=== PATIENT | female | born 1930 | race Caucasian/White ===

== ENCOUNTER 2016-07-19 07:09 | Day surgery (SDC) | payer MEDICARE ==
[~2016-07-19] VITALS: Ht 149.9 cm; Wt 51.8 kg
[2016-07-19] VITALS (8 sets, daily range): BP systolic 102–153; BP diastolic 42–72; PULSE 70–90; RESP 18–20; TEMP 95.9–97.4; O2SAT 94–98
[2016-07-19] MEDS ORDERED: ASPI1TAB69 PO (07:50)
[2016-07-19] MEDS ORDERED: AMLO5TAB2 PO (07:50)
[2016-07-19] MEDS ORDERED: PRESCAP5 PO (07:50)
[2016-07-19] MEDS ORDERED: B COTAB8 PO (07:50)
[2016-07-19] MEDS ORDERED: COQ1400C PO (07:50)
[2016-07-19] MEDS ORDERED: PANT40TA3 PO (07:50)
[2016-07-19] MEDS ORDERED: PRAV80TA2 PO (07:50)
[2016-07-19] MEDS ORDERED: SODIUM BICARBONATE 8.4% INJ 50 ML ONE (08:02)
[2016-07-19] MEDS ORDERED: LIDOCAINE 1%/EPINEPHrine 1:100,000 SOLN 20 ML VIAL ONE (08:02)
[2016-07-19 08:09] LABS: AUTOMATED NEUTROPHIL # 5.4 TH/MM3 (1.8-7.7); BASOPHIL # 0.1 TH/MM3 (0-0.2); BASOPHIL % 0.6 % (0.0-2.0); EOSINOPHIL # 0.1 TH/MM3 (0-0.4); EOSINOPHIL % 1.1 % (0.0-4.0); HEMATOCRIT 41.8 % (35.0-46.0); LYMPH % 23.5 % (9.0-44.0); MEAN CELL VOLUME 93.6 FL (80.0-100.0); MEAN CORPUSCULAR HEMOGLOBIN 33.7 PG (27.0-34.0); NEUT % 63.8 % (16.0-70.0); PLATELET COUNT 173 TH/MM3 (150-450); RED BLOOD COUNT 4.46 MIL/MM3 (4.00-5.30); RED CELL DISTRIBUTION WIDTH 13.4 % (11.6-17.2); WHITE BLOOD COUNT 8.5 TH/MM3 (4.0-11.0)
[2016-07-19 08:11] LABS: HEMO FLAGS AUTO DIFF
[2016-07-19 08:37] LABS: SCAN/DIFF AUTO DIFF CONFIRMED
[2016-07-19] MEDS ORDERED: MIDAZOLAM HCL 5 MG/5 ML VIAL ONE (08:45)
[2016-07-19] MEDS ORDERED: fentaNYL CITRATE 250 MCG/5 ML AMP ONE (08:45)
--- NOTE | 2016-07-19 11:23 | RADRPT ---
EXAM DATE/TIME: 07/19/2016 10:54 [facility] COMPARISON: No previous studies available for comparison. INDICATIONS : Status post left lung biopsy. MEDICAL HISTORY : None. SURGICAL HISTORY : Right lobectomy. ENCOUNTER: Initial ACUITY: 1 day PAIN SCORE: 0/10 LOCATION: Left chest FINDINGS: Single frontal expiratory view of the chest obtained portably demonstrates mild elevation of the righ t hemidiaphragm. There is opacity at the left lower lung consistent with the patient's known left mulu g mass. There is atherosclerotic calcification of the aorta noted. There is no evidence of pneumothor ax. Degenerative changes of the spine. CONCLUSION: No evidence of pneumothorax. Vinnie Herring MD on July 19, 2016 at 11:21 Board Certified Radiologist. This report was verified electronically.
--- NOTE | 2016-07-19 11:32 | RADRPT ---
EXAM DATE/TIME: 07/19/2016 08:55 [facility] COMPARISON: CHEST EXPIRATION ONLY, July 19, 2016, 10:54. Correlated with outside PET/CT exam. INDICATIONS : Left lung mass. SEDATION TIME: 30 minutes BIOPSY SITE: Left lung MEDICATION(S): 1.) 2.5 mg midazolam (Versed) IV 2.) 150 mcg fentanyl (Sublimaze) IV DEVICE(S): 1.) 18 gauge Shah blunt needle 10cm 2.) 20 gauge Temno core biopsy needle 15cm MEDICAL HISTORY : Carcinoma, lung. Carcinoma, colon. SURGICAL HISTORY : Lobectomy. Colon surgery ENCOUNTER: Initial ACUITY: 1 day PAIN SCORE: 0/10 LOCATION: Left chest A total of six core specimen(s) were obtained and sent to the laboratory for pathologic evaluation. PROCEDURE: 1. CT guided lung biopsy. 2. Conscious sedation with continuous EKG and oximetry monitoring. Prior to the procedure informed consent was obtained. The patient's outside examinations were reviewe d. Using automated exposure control and adjustment of the mA and/or kV according to patient size, rad iation dose was kept as low as reasonably achievable to obtain optimal diagnostic quality images. The site was prepped in a sterile fashion. Full sterile technique was used, including cap, mask, tati rile gloves and gown and a large sterile sheet. Hand hygiene and 2% chlorhexidine and/or betadine/al cohol prep was utilized per protocol for cutaneous antisepsis. The skin and subcutaneous tissues wer e infiltrated with local anesthetic solution. With CT guidance the bilobed left upper lobe mass was localized. Biopsy was performed using the presc ribed needle as above. Adequate hemostasis was obtained with compression at the puncture site. Follow-up CT scan reveals no pneumothorax. There is mild perilesional hemorrhage. Conscious sedation was performed with the prescribed dosages and duration as above in the presence of an independent trained radiology nurse to assist in the monitoring of the patient. EKG and oximetry remained stable throughout the procedure. The patient tolerated the procedure well and there were no complications. The patient was sent to Radiology Outpatient Unit in stable condition. CONCLUSION: Uncomplicated CT guided biopsy of the bilobed left upper lobe mass. Gerald Schulz MD on July 19, 2016 at 11:30 Board Certified Radiologist. This report was verified electronically.
--- NOTE | 2016-07-19 13:17 | RADRPT ---
EXAM DATE/TIME: 07/19/2016 12:55 [facility] COMPARISON: CHEST EXPIRATION ONLY, July 19, 2016, 10:54. INDICATIONS : Pneumothorax. Post lung biopsy. MEDICAL HISTORY : Carcinoma, lung. Carcinoma, colon. SURGICAL HISTORY : Lobectomy. Colon surgery ENCOUNTER: Subsequent ACUITY: 1 day PAIN SCORE: 2/10 LOCATION: Left chest FINDINGS: Upright expiratory view of the chest demonstrates no pneumothorax following recent left lung nodule b iopsy. The nodule in the left midlung zone is stable. There is stable elevation of the right hemidiap hragm. CONCLUSION: No pneumothorax is present. Gerald Schulz MD on July 19, 2016 at 13:15 Board Certified Radiologist. This report was verified electronically.
== END 2016-07-19 13:42 | disposition home or self-care (01) ==
LOC: HRAD 07:09 → HRIP 07:13 → HRAD 13:42
PROVIDERS: ATTEND Internal Medicine Hematology & Oncology
DX: R91.8 Other nonspecific abnormal finding of lung field (principal); J93.9 Pneumothorax, unspecified; C18.9 Malignant neoplasm of colon, unspecified
CPT/HCPCS: 32405; 71010; 77012; 85025; 88305; 88341; 88342; J2250; J3010